=== PATIENT | female | born 1930 | race Caucasian/White ===

== ENCOUNTER 2016-08-09 12:20 | Observation (INO) | payer MEDICARE ==
[~2016-08-09] VITALS: Ht 165.1 cm; Wt 78.9 kg
[~2016-08-09 12:20] MED LIST: BACTRIM DS TABL1 TAB PO; BUSPIRONE HCL30 MG PO; BYSTOLIC10 MG PO; CELEXA10 MG PO; CELEXA20 MG PO; COZAAR50 MG PO; DILANTIN100 MG PO; DUONEB 2.5-0.5 M3 ML UPD; KLONOPIN1 MG PO; MILK OF MAGNESI30 ML
[2016-08-09 12:53] LABS: BASOPHILS 0.3 % (0.0-2.0); EOSINOPHILS 2.1 % (0-7); HEMATOCRIT 44.9 % (36.0-48.0); HEMOGLOBIN 14.6 g/dL (12-16); IMMATURE GRANULOCYTES 0.3 % (0-5); LYMPHOCYTES 21.8 % (15-50); MCH 30.6 pg (26.0-34.0); MCHC 32.5 g/dL (31.0-37.0); MCV 94.1 fL (80.0-100.0); MEAN PLATELET VOLUME 10.6 fL (7.4-10.4); MONOCYTES 7.5 % (2-11); PLATELET COUNT 143 10x3/uL (130-400); RBC 4.77 10x6/uL (4.00-5.40); RDW 13.7 % (11.5-14.5); WBC 7.5 10x3/uL (4.8-10.8)
[2016-08-09 13:10] LABS: ALBUMIN 3.6 g/dL (3.4-5.0); ALKALINE PHOSPHATASE 82 U/L (46-116); ALT (SGPT) 16 U/L (10-68); BILIRUBIN - TOTAL 0.78 mg/dL (0.2-1.3); CALC OSMOLALITY 279 mosm/kg (275-300); CALCIUM 9.2 mg/dL (8.5-10.1); CARBON DIOXIDE 24.7 mmol/L (21.0-32.0); CHLORIDE - SERUM 105 mmol/L (98-107); CREATININE - SERUM 0.8 mg/dL (0.6-1.3); GLUCOSE 106 mg/dL (74-106); POTASSIUM - SERUM 4.3 mmol/L (3.5-5.1); SODIUM 139 mmol/L (136-145); UREA NITROGEN 18 mg/dL (7-18); eGFR NON AFRICAN AMERICAN 72 mL/min (90-120)
[2016-08-09 13:22] LABS: CKMB 3.2 U/L (0.0-3.6); CREATINE KINASE 134 UL (21-215)
[2016-08-09 13:23] LABS: TROPONIN-I < 0.017 ng/mL (0.000-0.060)
[2016-08-09 16:28] LABS: CKMB 4.9 U/L (0.0-3.6); CREATINE KINASE 144 UL (21-215)
[2016-08-09 16:33] LABS: TROPONIN-I < 0.017 ng/mL (0.000-0.060)
--- NOTE | 2016-08-09 17:00 | NUR ---
RECEIVED PT TO ROOM 2114 VIA W/C FROM ER IN STABLE CONDITION DENIES ANY CHEST PAIN OR DISCOMFORT AT THIS TIME WILL CONTINUE TO MONITOR
[2016-08-09] MEDS ORDERED: METOPROLOL TART25 MG PO (17:03)
[2016-08-09] MEDS ORDERED: NORVASC5 MG PO (17:03)
[2016-08-09] MEDS ORDERED: MECLIZINE HCL25 MG PO (17:04)
[2016-08-09 17:29] VITALS: BP 170/54; BMI 29.0
[2016-08-09 20:00] VITALS: BP 143/53
--- NOTE | 2016-08-09 21:38 | NUR ---
PHONE CALL FROM DAUGHTER REQUESTING PT UPDATE.
[2016-08-09 22:09] LABS: CKMB 2.1 U/L (0.0-3.6); CREATINE KINASE 70 UL (21-215)
[2016-08-09 22:11] LABS: TROPONIN-I < 0.017 ng/mL (0.000-0.060)
--- NOTE | 2016-08-09 22:40 | NUR ---
RESTING IN BED. NO DISTRESS. BED ALARM IN PLACE. CPOC.
[2016-08-10 03:25] LABS: BASOPHILS 0.3 % (0.0-2.0); EOSINOPHILS 3.4 % (0-7); HEMATOCRIT 41.4 % (36.0-48.0); HEMOGLOBIN 13.2 g/dL (12-16); IMMATURE GRANULOCYTES 0.2 % (0-5); MCH 30.1 pg (26.0-34.0); MCHC 31.9 g/dL (31.0-37.0); MCV 94.3 fL (80.0-100.0); MEAN PLATELET VOLUME 10.2 fL (7.4-10.4); MONOCYTES 10.8 % (2-11); NEUTROPHILS 50.3 % (40-80); PLATELET COUNT 158 10x3/uL (130-400); RBC 4.39 10x6/uL (4.00-5.40); RDW 13.7 % (11.5-14.5); WBC 6.1 10x3/uL (4.8-10.8)
[2016-08-10 03:46] LABS: ALKALINE PHOSPHATASE 68 U/L (46-116); ALT (SGPT) 15 U/L (10-68); BILIRUBIN - TOTAL 0.59 mg/dL (0.2-1.3); CALC OSMOLALITY 285 mosm/kg (275-300); CALCIUM 8.3 mg/dL (8.5-10.1); CARBON DIOXIDE 27.9 mmol/L (21.0-32.0); CHLORIDE - SERUM 108 mmol/L (98-107); CHOL - HDL RATIO 3.4 ratio (2.3-4.1); CHOLESTEROL, TOTAL 206 mg/dL (0-200); CKMB 1.6 U/L (0.0-3.6); CREATINE KINASE 55 UL (21-215); CREATININE - SERUM 0.9 mg/dL (0.6-1.3); GLUCOSE 93 mg/dL (74-106); HDL CHOLESTEROL 60 mg/dL (32-96); LDL CHOLESTEROL 129 mg/dL (0-100); LDL-HDL RATIO 2.2 ratio (1.5-3.5); POTASSIUM - SERUM 3.9 mmol/L (3.5-5.1); PROTEIN - SERUM 5.9 g/dL (6.4-8.2); SODIUM 143 mmol/L (136-145); TRIGLYCERIDE 86 mg/dL (30-200); UREA NITROGEN 16 mg/dL (7-18); eGFR NON AFRICAN AMERICAN 63 mL/min (90-120)
[2016-08-10 03:56] LABS: TROPONIN-I < 0.017 ng/mL (0.000-0.060)
[2016-08-10 04:00] VITALS: BP 169/57
--- NOTE | 2016-08-10 07:30 | NUR ---
RECEIVED PT RESTING IN BED DENIES ANY NEEDS OR DISCOMFORT NAD NOTED
[2016-08-10 08:56] VITALS: BP 151/54
[2016-08-10 10:37] VITALS: Ht 165.1 cm; Wt 78.9 kg
[2016-08-10 12:00] VITALS: BP 209/22
[2016-08-10 12:49] VITALS: BP 182/61
[2016-08-10 12:50] VITALS: BP 151/78; BP 173/79
--- NOTE | 2016-08-10 16:16 | NUR ---
OT NOTE: PT COMPLETED BED MOB WITH SBA. PT COMPLETED SIMPLE GROOMING WITH SET UP. PT COMPLETED BUE AROM EXS FOR INCREASED ENDURANCE. THANK YOU, KARYN JORGE/Jeni
[2016-08-10 17:41] VITALS: BP 141/66
--- NOTE | 2016-08-10 17:55 | NUR ---
REVIEWED DISCHARGE INSTRUCTIONS WITH PT AND FAMILY MEMBERS PT STATES UNDERSTANDING COPY GIVEN TO PT SALINE LOCK DCD TO LAC WITH IV CATHETER INTACT SITE NOTED WITH SL BRUISING PT DISCHARGED HOME IN STABLE CONDITION LEFT UNIT VIA W/C IN STABLE CONDITION
--- NOTE | 2016-08-14 15:00 | EC ---
PATIENT:MARGARET COHEN DATE OF SERVICE: 08/09/16 SEX: F MEDICAL RECORD: [id number] DATE OF : 28 LOCATION:D.M2 D.211 AGE OF PATIENT: 86 ADMISSION DATE: 08/09/16 REFERRING PHYSICIAN: INTERPRETING PHYSICIAN: CRISTI PAL MD ECHOCARDIOGRAM REPORT ECHO CHARGES 4 ECHO COMPLETE CLINICAL DIAGNOSIS: DIZZINESS, CHEST PAIN,BRADYCARDIA HX HTN/VERTIGO ECHOCARDIOGRAPHIC MEASUREMENTS (adult normal given) AC root (d.<3.7cm) 3.0 LV Septum d (<1.2 cm> 1.1 Valve Excursion 1.8 LV Septum (systole) 1.6 Left Atria (s.<4.0cm> 4.5 LVPW d(<1.2cm) 1.8 RV (d.<2.3cm) 3.8 LVPW (sytole) 2.0 LV diastole(<5.6CM) 5.1 MV E-F(>70mm/sec) LV systole 3.5 LVOT Diameter 1.6 MV exc.(>10mm) 2.0 Est.ejection fraction (50-75%) Pericardial Effusion N DOPPLER: LVIT A 87.0 E 78.0 LA RVSP 36 LVOT 120 AOP1/2T Asc. Ao 161 RVOT 86 RA PA 95 AV Gradient Peak 10.39 AV Mean 5.46 AV Area 1.5 MV Gradient Peak 3.75 MV Mean 1.47 MV Area COMMENTS: Vocal Performer: Mariela JOHNSON Talent Development Director:Evan Owens TAPE# PACS DATE OF SERVICE: 08/10/2016 Adequate 2D echo, color flow and spectral Doppler, and M-mode. No LVH. LV internal dimension is normal. Wall motion is normal. EF is 55%. Aortic valve is tricuspid. No stenosis by Doppler interrogation. The left atrium is mildly dilated. Mitral valve shows no prolapse. Minimal mitral annular calcification and only mild MR. Right-sided chamber appear grossly normal. Trace TR. ECHOCARDIOGRAM REPORT [id number] MARGARET COHEN TRANSINT:[id number] Voice Confirmation ID: [id number] DOCUMENT ID: [id number] CRISTI PAL MD at 1500 CC: [id number] DICTATION DATE: 08/11/16 0959 BUSINESS INFO CONSULTANT: 08/12/16 1323 DIS IN 08/10/16 [facility] [address] [place] [address]
== END 2016-08-10 17:55 | disposition home or self-care (01) ==
LOC: D.ER 12:20 → D.M2 15:09 → OBSVTIME 08-10 17:00 → D.M2 08-10 17:55
PROVIDERS: Family Medicine; ADMIT Family Medicine
DX: R42 Dizziness and giddiness (principal); R07.9 Chest pain, unspecified; I10 Essential (primary) hypertension; R61 Generalized hyperhidrosis; R41.82 Altered mental status, unspecified; F32.9 Major depressive disorder, single episode, unspecified; I45.10 Unspecified right bundle-branch block